=== PATIENT | male | born 1960 | race Caucasian/White ===

== ENCOUNTER → 2016-08-20 | Outpatient (CLI) | payer MEDICAID ==
[~2016-08-20] MED LIST: AMLO5TAB88 PO; BENA20TA3 PO; COLC0.6T66 PO; COR25 PO; FLEC100T2 PO; METOPROLOL; WARF10TA21 PO
[2016-08-20 08:04] LABS: HEMATOCRIT 41.7 % (42.0-52.0); HEMOGLOBIN 14.2 g/dL (14.0-18.0); MEAN CORPUSCULAR HEMOGLOBIN 29.8 pg (28.0-32.0); MEAN CORPUSCULAR VOLUME 87.3 fL (80.0-94.0); PLATELET 128 x1000/uL (130-400); RED BLOOD CELL COUNT 4.77 mill/uL (4.7-6.1); RED CELL DISTRIBUTION WIDTH 13.9 % (11.6-14.6)
[2016-08-20 08:10] LABS: INR 2.7; PARTIAL THROMBOPLASTIN TIME 41.3 sec (24.0-34.0); PROTHROMBIN TIME 28.8 sec
[2016-08-20 08:13] LABS: CARBON DIOXIDE 28 mEq/L (21-32); CHLORIDE 110 mEq/L (98-107)
== END | disposition home or self-care (01) ==
LOC: CCL 06:00 → CARD 06:10 → EDSTATUS 08:00
PROVIDERS: ATTEND Internal Medicine Clinical Cardiac Electrophysiology
DX: I48.4 Atypical atrial flutter (principal); I35.8 Other nonrheumatic aortic valve disorders; I10 Essential (primary) hypertension; I45.81 Long QT syndrome; Z79.01 Long term (current) use of anticoagulants
CPT/HCPCS: 36415; 80048; 85027; 85610; 85730; 93005

== ENCOUNTER 2016-08-21 06:14 | Day surgery (SDC) | payer MEDICAID ==
[~2016-08-21] VITALS: Ht 167.6 cm; Wt 72.6 kg
[2016-08-21] MEDS ORDERED: DIPHENHYDRAMINE 50MG/ML VIAL ONE (08:09)
[2016-08-21] MEDS ORDERED: MIDAZOLAM HCL 5 MG/5 ML VIAL ONE (08:09)
[2016-08-21] MEDS ORDERED: FENTANYL CITRATE/PF 50MCG/ML 2ML VIAL ONE (08:09)
[2016-08-21] MEDS ORDERED: PROPOFOL 200MG/20ML VIAL IV ONE (08:36)
[2016-08-21] MEDS ORDERED: LIDOCAINE HCL/PF 2% 20MG/ML 5 ML/VIAL ONE (08:37)
[2016-08-21] MEDS ORDERED: HYDROMORPHONE HCL/PF 2MG/ML CPJ IV PRN ×2 (08:45→12:15)
[2016-08-21] MEDS ORDERED: LABETALOL HCL 20MG/4ML CARPUJECT IV PRN ×2 (08:45→12:15)
[2016-08-21] MEDS ORDERED: ONDANSETRON HCL 4MG/2ML VIAL IV PRN ×2 (08:45→12:15)
[2016-08-21] MEDS ORDERED: MEPERIDINE HCL/PF 25MG/ML CPJ IV PRN ×2 (08:45→12:15)
== END 2016-08-21 12:15 | disposition home or self-care (01) ==
LOC: OR 06:14
PROVIDERS: ATTEND Internal Medicine Clinical Cardiac Electrophysiology
DX: I48.91 Unspecified atrial fibrillation (principal); I48.92 Unspecified atrial flutter; Z95.2 Presence of prosthetic heart valve; I10 Essential (primary) hypertension
CPT/HCPCS: 92960; 93005; J3490; J1200; J2250; J2704; J3010

== ENCOUNTER 2017-06-01 08:36 | Day surgery (SDC) | payer MEDICAID ==
[~2017-06-01] VITALS: Ht 180.3 cm; Wt 94.3 kg
[~2017-06-01 08:36] MED LIST changes: -METOPROLOL
[2017-06-01 10:14] LABS: BASOPHILS % 0.4 % (0.0-2.0); EOSINOPHILS % 1.9 % (0.0-5.0); HEMATOCRIT. 42.8 % (42.0-52.0); HEMOGLOBIN. 14.6 g/dL (14.0-18.0); LYMPHOCYTES % 18.5 % (20.0-50.0); MEAN CORPUSCULAR HEMOGLOBIN 30.3 pg (28.0-32.0); MEAN CORPUSCULAR VOLUME 88.7 fL (80.0-94.0); MEAN PLATELET VOLUME 9.1 fl (7.4-10.4); MONOCYTES % 10.9 % (2.0-8.0); NEUTROPHILS % 68.3 % (40.0-76.0); PLATELET 117 x1000/uL (130-400); RED BLOOD CELL COUNT 4.83 mill/uL (4.7-6.1); RED CELL DISTRIBUTION WIDTH 15.7 % (11.6-14.6)
[2017-06-01 10:16] LABS: CHLORIDE 110 mEq/L (98-107)
[2017-06-01 10:20] LABS: INR 3.4; PARTIAL THROMBOPLASTIN TIME 43.2 sec (23.4-31.0); PROTHROMBIN TIME 36.1 sec (9.4-11.6)
[2017-06-01] MEDS ORDERED: WARF-53 PO (10:30)
[2017-06-01] MEDS ORDERED: AMI2 PO (10:30)
[2017-06-01] MEDS ORDERED: PROPOFOL 200MG/20ML VIAL IV ONE (11:39)
[2017-06-01] MEDS ORDERED: ATROPINE SULFATE 0.1MG/ML 10ML DISP.SYRIN ONE (11:44)
[2017-06-01] MEDS ORDERED: SODIUM CHLORIDE 0.9% 1,000 ML IV SCH (13:45)
[2017-06-01] MEDS ORDERED: ONDANSETRON HCL 4MG/2ML VIAL IV PRN (13:45)
== END 2017-06-01 14:30 | disposition home or self-care (01) ==
LOC: CARD 08:36
PROVIDERS: ATTEND Internal Medicine Clinical Cardiac Electrophysiology
DX: I48.1 Persistent atrial fibrillation (principal); Z95.0 Presence of cardiac pacemaker
CPT/HCPCS: 36415; 80048; 85025; 85610; 85730; 92960; 93005; J0461; J2704

== ENCOUNTER 2018-04-27 12:23 | Day surgery (SDC) | payer MEDICAID ==
[~2018-04-27 12:23] MED LIST changes: +AMI2 PO; +BENA20TA10 PO; -BENA20TA3 PO; +WARF-53 PO
[2018-04-27 13:40] LABS: HEMATOCRIT. 37.7 % (42.0-52.0); HEMOGLOBIN. 12.7 g/dL (14.0-18.0); MEAN CORPUSCULAR HEMOGLOBIN 29.7 pg (28.0-32.0); MEAN CORPUSCULAR VOLUME 88.3 fL (80.0-94.0); MEAN PLATELET VOLUME 8.4 fl (7.4-10.4); PLATELET 126 x1000/uL (130-400); RED BLOOD CELL COUNT 4.26 mill/uL (4.7-6.1); RED CELL DISTRIBUTION WIDTH 13.6 % (11.6-14.6)
[2018-04-27 13:45] LABS: CHLORIDE 109 mEq/L (98-107)
[2018-04-27 13:49] LABS: INR 2.5; PARTIAL THROMBOPLASTIN TIME 45.6 sec (23.4-31.0); PROTHROMBIN TIME 25.1 sec (9.1-11.1)
[2018-04-27 14:08] LABS: ATYPICAL LYMPHOCYTES 1
[2018-04-27 14:09] LABS: PLATELET ESTIMATE SLIGHTLY DECREASED
[2018-04-27] MEDS ORDERED: FENTANYL CITRATE/PF 50MCG/ML 2ML VIAL ONE (15:13)
[2018-04-27] MEDS ORDERED: MIDAZOLAM HCL 5 MG/5 ML VIAL ONE (15:14)
[2018-04-27] MEDS ORDERED: ONDANSETRON HCL 4MG/2ML INJ IV PRN (15:45)
== END 2018-04-27 17:30 | disposition home or self-care (01) ==
LOC: CCL 12:23
PROVIDERS: ATTEND Internal Medicine Clinical Cardiac Electrophysiology
DX: I48.0 Paroxysmal atrial fibrillation (principal); Z95.1 Presence of aortocoronary bypass graft
CPT/HCPCS: 36415; 80048; 85025; 85610; 85730; 92960; 93005; J2250; J2704; J3010; J3490

== ENCOUNTER 2018-05-08 13:04 | Emergency (ER) | payer MEDICAID ==
[~2018-05-08] VITALS: Ht 180.3 cm; Wt 95.0 kg
[2018-05-08 14:43] LABS: BASOPHILS % 0.2 % (0.0-2.0); EOSINOPHILS % 1.1 % (0.0-5.0); HEMOGLOBIN. 12.5 g/dL (14.0-18.0); LYMPHOCYTES % 10.2 % (20.0-50.0); MEAN CORPUSCULAR HEMOGLOBIN 29.8 pg (28.0-32.0); MEAN CORPUSCULAR VOLUME 88.2 fL (80.0-94.0); MEAN PLATELET VOLUME 9.5 fl (7.4-10.4); MONOCYTES % 10.1 % (2.0-8.0); NEUTROPHILS % 78.4 % (40.0-76.0); PLATELET 150 x1000/uL (130-400); RED CELL DISTRIBUTION WIDTH 13.4 % (11.6-14.6)
[2018-05-08 14:47] LABS: CHLORIDE 110 mEq/L (98-107); INR 2.2; PROTHROMBIN TIME 21.4 sec (9.1-11.1)
[2018-05-08 17:00] VITALS: BP 123/64
== END 2018-05-08 17:00 | disposition left against medical advice (07) ==
LOC: ER 13:15 → CANBEDREQ 16:07 → ER 17:00
DX: R55 Syncope and collapse (principal); S00.31XA Abrasion of nose, initial encounter; I48.91 Unspecified atrial fibrillation; I11.9 Hypertensive heart disease without heart failure; Z79.01 Long term (current) use of anticoagulants; Z95.2 Presence of prosthetic heart valve; W01.0XXA Fall on same level from slipping, tripping and stumbling without subsequent striking against object, initial encounter; Y93.89 Activity, other specified; Y92.018 Other place in single-family (private) house as the place of occurrence of the external cause
CPT/HCPCS: 36415; 70486; 71045; 82962; 83605; 83880; 84484; 93005; 99284

== ENCOUNTER 2018-07-31 04:17 | Inpatient (IN) | payer MEDICAID ==
[~2018-07-31] VITALS: Ht 180.3 cm; Wt 91.3 kg
[2018-07-31] VITALS (58 sets, daily range): BP systolic 82–131; BP diastolic 46–85
[~2018-07-31 04:17] MED LIST changes: -AMI2 PO
[2018-07-31] MEDS ORDERED: SODIUM CHLORIDE 0.9% 1,000 ML IV ONE ×2 (04:53→06:29)
[2018-07-31] MEDS ORDERED: CALCIUM GLUCONATE 100MG/ML 10ML VIAL IV ONE (05:00)
[2018-07-31] MEDS ORDERED: GLUCAGON,HUMAN RECOMBINANT 1MG/VIAL IV ONE (05:00)
[2018-07-31] MEDS ORDERED: ATROPINE SULFATE 1MG/ML VIAL IV ONE (05:15)
[2018-07-31 05:21] LABS: CHLORIDE 106 mEq/L (98-107)
[2018-07-31 05:22] LABS: BASOPHILS % 0.4 % (0.0-2.0); EOSINOPHILS % 1.6 % (0.0-5.0); HEMATOCRIT. 43.3 % (42.0-52.0); HEMOGLOBIN. 14.4 g/dL (14.0-18.0); LYMPHOCYTES % 19.6 % (20.0-50.0); MEAN CORPUSCULAR VOLUME 87.4 fL (80.0-94.0); MONOCYTES % 9.4 % (2.0-8.0); PLATELET 124 x1000/uL (130-400); RED BLOOD CELL COUNT 4.95 mill/uL (4.7-6.1); RED CELL DISTRIBUTION WIDTH 16.9 % (11.6-14.6)
[2018-07-31] MEDS ORDERED: ATROPINE SULFATE 1MG/10ML SYR IV SCH (05:30)
[2018-07-31] MEDS ORDERED: ONDANSETRON HCL 4MG/2ML INJ IV ONE ×2 (05:30→07:15)
[2018-07-31 05:42] LABS: INR 1.1; PARTIAL THROMBOPLASTIN TIME 30.9 sec (23.4-31.0); PROTHROMBIN TIME 11.6 sec (9.6-11.0)
[2018-07-31] MEDS ORDERED: DOPAMINE 400MG/250ML PREMIX 250 ML IV ONE (06:30)
[2018-07-31] MEDS ORDERED: ACETAMINOPHEN 650MG SUPP PR PRN (08:30)
[2018-07-31] MEDS ORDERED: CLONIDINE 0.1MG TABLET PO PRN (08:30)
[2018-07-31] MEDS ORDERED: IPRATROPIUM/ALBUTEROL 0.5-3(2.5)MG/3ML NEB INH PRN (08:30)
[2018-07-31] MEDS ORDERED: HYDROCODONE/ACETAMINOPHEN 5/325MG TABLET PO PRN (08:30)
[2018-07-31] MEDS ORDERED: GUAIFENESIN 200MG/10ML SUGAR FREE UDC PO PRN (08:30)
[2018-07-31] MEDS ORDERED: HYDROCODONE/ACETAMINOPHEN 10/325MG TABLET PO PRN (08:30)
[2018-07-31] MEDS ORDERED: ACETAMINOPHEN 650MG/20.3ML UDC GT PRN (08:30)
[2018-07-31] MEDS ORDERED: DIPHENHYDRAMINE 50MG/ML VIAL IV PRN (08:30)
[2018-07-31] MEDS ORDERED: MAGNESIUM/ALUMINUM HYDROXIDE/SIMETHICONE 30ML UDC PO PRN (08:30)
[2018-07-31] MEDS ORDERED: DEXTROSE 50% WATER 50ML SYRINGE IV PRN (10:45)
[2018-07-31] MEDS ORDERED: NA PHOS,M-B/NA PHOS,DI-BA ENEMA 118ML PR PRN (11:00)
[2018-07-31] MEDS ORDERED: DOCUSATE SODIUM 100MG CAPSULE PO PRN (11:00)
[2018-07-31] MEDS ORDERED: ENOXAPARIN 40MG/0.4ML SYR SUBCUT SCH (12:00)
[2018-07-31 12:01] LABS: CLARITY URINE CLEAR (CLEAR); COLOR URINE YELLOW (YELLOW); KETONES URINE NEGATIVE (NEGATIVE); LEUKOCYTE ESTERASE URINE NEGATIVE (NEGATIVE); NITRITE URINE NEGATIVE (NEGATIVE); OCCULT BLOOD URINE NEGATIVE (NEGATIVE); PROTEIN URINE 1+ (NEGATIVE); SPECIFIC GRAVITY URINE 1.017 (1.005-1.030); UROBILINOGEN URINE 0.2 E.U./dL (0.2-1.0)
[2018-07-31 12:11] LABS: *AMPHETAMINES SCREEN URINE NEGATIVE (NEGATIVE)
[2018-07-31 12:12] LABS: *BARBITURATES SCREEN URINE NEGATIVE (NEGATIVE); *BENZODIAZEPINES SCREEN URINE NEGATIVE (NEGATIVE); *COCAINE SCREEN URINE NEGATIVE (NEGATIVE); CANNABINOID URINE SCREEN NEGATIVE (NEGATIVE); METHADONE URINE SCREEN NEGATIVE (NEGATIVE); OPIATES URINE SCREEN NEGATIVE (NEGATIVE); PHENCYCLIDINE URINE SCREEN NEGATIVE (NEGATIVE)
[2018-07-31] MEDS ORDERED: BLOOD SUGAR DIAGNOSTIC STRIP TEST SCH (12:50)
[2018-07-31] MEDS ORDERED: ONDANSETRON HCL 4MG/2ML INJ IV PRN (13:00)
[2018-07-31] MEDS ORDERED: INSULIN LISPRO 100 UNITS/ML SUBCUT SCH (13:20)
[2018-07-31] MEDS: SODIUM CHLORIDE 0.9% INJ 3ML FLUSH IVF SCH ×2 (13:23→21:39)
[2018-07-31] MEDS ORDERED: ENOXAPARIN 60MG/0.6ML SYR SUBCUT NR (14:45)
[2018-07-31 15:57] LABS: CREATINE KINASE 56 IU/L (39-308)
[2018-07-31 15:58] LABS: CREATINE KINASE MB FRACTION < 1.0 ng/mL (0.5-3.6)
[2018-07-31] MEDS: DOPAMINE 400MG/250ML PREMIX 250 ML IV PRN (16:40)
[2018-07-31] MEDS ORDERED: WARFARIN SODIUM 10MG TABLET PO NR (18:00)
[2018-07-31] MEDS: ENOXAPARIN 100MG/ML SYR SUBCUT SCH (21:39)
[2018-07-31 23:38] LABS: CREATINE KINASE 51 IU/L (39-308)
[2018-07-31 23:39] LABS: CREATINE KINASE MB FRACTION < 1.0 ng/mL (0.5-3.6)
[2018-08-01] VITALS (53 sets, daily range): BP systolic 91–131; BP diastolic 46–86
[2018-08-01] MEDS: DOPAMINE 400MG/250ML PREMIX 250 ML IV PRN ×2 (02:18→12:24)
[2018-08-01] MEDS: ACETAMINOPHEN 325MG TABLET PO PRN (02:53)
[2018-08-01] MEDS: SODIUM CHLORIDE 0.9% INJ 3ML FLUSH IVF SCH ×3 (05:36→21:09)
[2018-08-01 05:38] LABS: BASOPHILS % 0.3 % (0.0-2.0); EOSINOPHILS % 1.7 % (0.0-5.0); HEMATOCRIT. 41.5 % (42.0-52.0); HEMOGLOBIN. 14.1 g/dL (14.0-18.0); INR 1.4; LYMPHOCYTES % 15.4 % (20.0-50.0); MEAN CORPUSCULAR HEMOGLOBIN 29.5 pg (28.0-32.0); MEAN CORPUSCULAR VOLUME 86.7 fL (80.0-94.0); MEAN PLATELET VOLUME 8.7 fl (7.4-10.4); MONOCYTES % 10.9 % (2.0-8.0); NEUTROPHILS % 71.7 % (40.0-76.0); PLATELET 107 x1000/uL (130-400); PROTHROMBIN TIME 14.1 sec (9.6-11.0); RED BLOOD CELL COUNT 4.79 mill/uL (4.7-6.1); RED CELL DISTRIBUTION WIDTH 16.9 % (11.6-14.6)
[2018-08-01 06:12] LABS: CHLORIDE 109 mEq/L (98-107)
[2018-08-01 06:29] LABS: HDL CHOLESTEROL 38 mg/dL (40-59)
[2018-08-01 06:32] LABS: LDL CHOLESTEROL 93 mg/dL (5-100)
[2018-08-01] MEDS: ENOXAPARIN 100MG/ML SYR SUBCUT SCH ×2 (10:54→21:09)
[2018-08-01] MEDS ORDERED: ENOXAPARIN 40MG/0.4ML SYR SUBCUT SCH (21:00)
[2018-08-02] VITALS (58 sets, daily range): BP systolic 84–144; BP diastolic 43–89
[2018-08-02] MEDS: DOPAMINE 400MG/250ML PREMIX 250 ML IV PRN (04:11)
[2018-08-02] MEDS: SODIUM CHLORIDE 0.9% INJ 3ML FLUSH IVF SCH ×3 (06:00→22:33)
[2018-08-02 07:56] LABS: CHLORIDE 109 mEq/L (98-107)
[2018-08-02 08:05] LABS: BASOPHILS % 0.4 % (0.0-2.0); EOSINOPHILS % 2.2 % (0.0-5.0); HEMATOCRIT. 40.5 % (42.0-52.0); HEMOGLOBIN. 13.5 g/dL (14.0-18.0); LYMPHOCYTES % 21.6 % (20.0-50.0); MEAN CORPUSCULAR VOLUME 87.1 fL (80.0-94.0); MEAN PLATELET VOLUME 8.3 fl (7.4-10.4); MONOCYTES % 10.9 % (2.0-8.0); NEUTROPHILS % 64.9 % (40.0-76.0); PLATELET 99 x1000/uL (130-400); RED BLOOD CELL COUNT 4.66 mill/uL (4.7-6.1); RED CELL DISTRIBUTION WIDTH 16.9 % (11.6-14.6)
[2018-08-02] MEDS: ENOXAPARIN 100MG/ML SYR SUBCUT SCH (09:33)
[2018-08-02] MEDS ORDERED: WARFARIN SODIUM 7.5MG TABLET PO SCH (10:12)
[2018-08-02] MEDS: ACETAMINOPHEN 325MG TABLET PO PRN ×2 (12:28→18:33)
[2018-08-02 17:04] LABS: INR 1.3; PROTHROMBIN TIME 13.6 sec (9.6-11.0)
[2018-08-02] MEDS: FLECAINIDE 50MG TABLET PO SCH (17:28)
[2018-08-02] MEDS ORDERED: WARFARIN SODIUM 2.5MG TABLET PO NR (18:30)
[2018-08-02] MEDS ORDERED: NOREPINEPHRINE 32 MG in DEXT 5% WATER 468 ML IV PRN (19:00)
[2018-08-03] VITALS (34 sets, daily range): BP systolic 89–148; BP diastolic 58–95
[2018-08-03] MEDS ORDERED: FLECAINIDE 50MG TABLET PO SCH ×2 (01:00)
[2018-08-03 05:45] LABS: BASOPHILS % 0.4 % (0.0-2.0); EOSINOPHILS % 2.8 % (0.0-5.0); HEMATOCRIT. 43.5 % (42.0-52.0); HEMOGLOBIN. 14.5 g/dL (14.0-18.0); LYMPHOCYTES % 23.3 % (20.0-50.0); MEAN CORPUSCULAR HEMOGLOBIN 28.9 pg (28.0-32.0); MEAN CORPUSCULAR VOLUME 86.7 fL (80.0-94.0); MEAN PLATELET VOLUME 8.5 fl (7.4-10.4); MONOCYTES % 12.1 % (2.0-8.0); NEUTROPHILS % 61.4 % (40.0-76.0); PLATELET 111 x1000/uL (130-400); RED BLOOD CELL COUNT 5.01 mill/uL (4.7-6.1)
[2018-08-03 05:54] LABS: INR 1.4; PROTHROMBIN TIME 14.6 sec (9.6-11.0)
[2018-08-03 06:10] LABS: CHLORIDE 108 mEq/L (98-107)
[2018-08-03] MEDS: SODIUM CHLORIDE 0.9% INJ 3ML FLUSH IVF SCH ×3 (07:30→22:10)
[2018-08-03] MEDS ORDERED: GENTAMICIN/NS IRRIGATION 500 ML IR ONE (07:35)
[2018-08-03] MEDS ORDERED: LIDOCAINE HCL 1% 20ML VIAL (Pyxis) INJ ONE (07:35)
[2018-08-03] MEDS ORDERED: GENTAMICIN SULF 40MG/ML 2ML VIAL ONE (07:35)
[2018-08-03] MEDS ORDERED: IOHEXOL-300 100 ML BOTTLE ONE (07:36)
[2018-08-03] MEDS ORDERED: CEFAZOLIN 1000MG PREMIX 100 ML IV ONE (07:37)
[2018-08-03] MEDS ORDERED: FENTANYL CITRATE/PF 50MCG/ML 2ML VIAL ONE (08:54)
[2018-08-03] MEDS ORDERED: MIDAZOLAM HCL 2 MG/2 ML VIAL ONE ×3 (08:54→11:33)
[2018-08-03] MEDS: FLECAINIDE 50MG TABLET PO SCH ×2 (09:32→20:13)
[2018-08-03] MEDS ORDERED: DIPHENHYDRAMINE 50MG/ML VIAL ONE (10:53)
[2018-08-03] MEDS ORDERED: CEFAZOLIN 1000MG PREMIX 50 ML IV ONE (11:06)
[2018-08-03] MEDS ORDERED: FLUMAZENIL 0.1 MG/ML 5ML VIAL IV ONE (11:35)
[2018-08-03] MEDS: HYDROCODONE/ACETAMINOPHEN 5/325MG TABLET PO PRN ×3 (13:52→22:56)
[2018-08-03] MEDS ORDERED: WARFARIN SODIUM 10MG TABLET PO NR (18:00)
[2018-08-03] MEDS: CEFAZOLIN 1000MG PREMIX 50 ML IV SCH (18:54)
[2018-08-03] MEDS: MAGNESIUM CITRATE 300ML SOLUTION PO SCH ×2 (21:19→22:00)
[2018-08-03] MEDS: CARVEDILOL 6.25 MG TABLET PO SCH (22:55)
[2018-08-04] VITALS (25 sets, daily range): BP systolic 102–134; BP diastolic 54–90
[2018-08-04] MEDS: MAGNESIUM CITRATE 300ML SOLUTION PO SCH (01:43)
[2018-08-04] MEDS: CEFAZOLIN 1000MG PREMIX 50 ML IV SCH (02:06)
[2018-08-04 06:01] LABS: CHLORIDE 108 mEq/L (98-107)
[2018-08-04 06:04] LABS: BASOPHILS % 0.2 % (0.0-2.0); EOSINOPHILS % 1.9 % (0.0-5.0); HEMATOCRIT. 42.2 % (42.0-52.0); HEMOGLOBIN. 14.4 g/dL (14.0-18.0); LYMPHOCYTES % 17.1 % (20.0-50.0); MEAN CORPUSCULAR HEMOGLOBIN 29.5 pg (28.0-32.0); MEAN CORPUSCULAR VOLUME 86.7 fL (80.0-94.0); MEAN PLATELET VOLUME 8.7 fl (7.4-10.4); MONOCYTES % 12.1 % (2.0-8.0); NEUTROPHILS % 68.7 % (40.0-76.0); PLATELET 124 x1000/uL (130-400); RED BLOOD CELL COUNT 4.86 mill/uL (4.7-6.1); RED CELL DISTRIBUTION WIDTH 16.4 % (11.6-14.6)
[2018-08-04 06:06] LABS: INR 1.4; PROTHROMBIN TIME 14.4 sec (9.6-11.0)
[2018-08-04] MEDS: ACETAMINOPHEN 325MG TABLET PO PRN ×2 (06:39→11:37)
[2018-08-04] MEDS: SODIUM CHLORIDE 0.9% INJ 3ML FLUSH IVF SCH (06:46)
[2018-08-04] MEDS: CARVEDILOL 6.25 MG TABLET PO SCH (08:37)
[2018-08-04] MEDS: FLECAINIDE 50MG TABLET PO SCH (08:37)
[2018-08-04] MEDS ORDERED: WARFARIN SODIUM 7.5MG TABLET PO SCH (18:00)
== END 2018-08-04 14:30 | disposition home or self-care (01) | DRG 171 ==
LOC: ER 04:17 → CVICU 07:15 → ENRESERV 08:28
PROVIDERS: ADMIT Family Medicine; ATTEND Family Medicine
PROC: 0JH606Z Insertion of Pacemaker, Dual Chamber into Chest Subcutaneous Tissue and Fascia, Open Approach (ICD-10-PCS; principal; 2018-08-03)
PROC: 02H63JZ Insertion of Pacemaker Lead into Right Atrium, Percutaneous Approach (ICD-10-PCS; 2018-08-03)
PROC: 02HK3JZ Insertion of Pacemaker Lead into Right Ventricle, Percutaneous Approach (ICD-10-PCS; 2018-08-03)
PROC: B5171ZZ Fluoroscopy of Left Subclavian Vein using Low Osmolar Contrast (ICD-10-PCS; 2018-08-03)
PROC: B5161ZZ Fluoroscopy of Right Subclavian Vein using Low Osmolar Contrast (ICD-10-PCS; 2018-08-03)
DX: I49.5 Sick sinus syndrome (principal); I48.91 Unspecified atrial fibrillation; E86.0 Dehydration; I10 Essential (primary) hypertension; I25.10 Atherosclerotic heart disease of native coronary artery without angina pectoris; Z95.2 Presence of prosthetic heart valve; Z79.01 Long term (current) use of anticoagulants; Z91.14 Patient's other noncompliance with medication regimen; Z79.899 Other long term (current) drug therapy
CPT/HCPCS: 33208; 36415; 71045; 75822; 80048; 80061; 80305; 82550; 82553; 82962; 83735; 83880; 84484; 92960; 93005; 93306; 93970; 96365; 96375; 99291; C1785; C1892; C1893; C1898; J0461; J0610; J0690; J1200; J1265; J1580; J1610; J1650; J2250; J2405; J3010; J3490; J7030; J7050; Q9967

== ENCOUNTER 2018-09-21 06:25 | Day surgery (SDC) | payer MEDICAID ==
[~2018-09-21] VITALS: Ht 181.6 cm; Wt 94.3 kg
[~2018-09-21 06:25] MED LIST changes: -AMLO5TAB88 PO; -BENA20TA10 PO; -COLC0.6T66 PO
[2018-09-21] MEDS ORDERED: PROPOFOL 200MG/20ML VIAL IV ONE (08:10)
[2018-09-21] MEDS ORDERED: LIDOCAINE HCL/PF 1% 10 MG/ML 5ML VIAL ONE (08:10)
[2018-09-21 08:39] LABS: BASOPHILS % 0.5 % (0.0-2.0); EOSINOPHILS % 1.6 % (0.0-5.0); HEMATOCRIT. 39.5 % (42.0-52.0); HEMOGLOBIN. 13.2 g/dL (14.0-18.0); LYMPHOCYTES % 17.4 % (20.0-50.0); MEAN CORPUSCULAR HEMOGLOBIN 29.9 pg (28.0-32.0); MEAN CORPUSCULAR VOLUME 89.3 fL (80.0-94.0); MEAN PLATELET VOLUME 8.4 fl (7.4-10.4); MONOCYTES % 10.6 % (2.0-8.0); NEUTROPHILS % 69.9 % (40.0-76.0); PLATELET 108 x1000/uL (130-400); RED BLOOD CELL COUNT 4.42 mill/uL (4.7-6.1); RED CELL DISTRIBUTION WIDTH 16.3 % (11.6-14.6)
[2018-09-21 08:45] LABS: CHLORIDE 110 mEq/L (98-107)
[2018-09-21 08:48] LABS: INR 2.7; PARTIAL THROMBOPLASTIN TIME 44.3 sec (23.4-31.0); PROTHROMBIN TIME 26.1 sec (9.6-11.0)
[2018-09-21] MEDS ORDERED: ACETAMINOPHEN 325MG TABLET PO PRN (10:15)
[2018-09-21] MEDS ORDERED: ONDANSETRON HCL 4MG/2ML INJ IV PRN (10:30)
== END 2018-09-21 11:45 | disposition home or self-care (01) ==
LOC: CARD 06:25
PROVIDERS: ATTEND Internal Medicine Clinical Cardiac Electrophysiology
DX: I48.0 Paroxysmal atrial fibrillation (principal); I49.5 Sick sinus syndrome; E11.9 Type 2 diabetes mellitus without complications; I11.0 Hypertensive heart disease with heart failure; I50.9 Heart failure, unspecified; J45.909 Unspecified asthma, uncomplicated; Z79.01 Long term (current) use of anticoagulants; Z79.899 Other long term (current) drug therapy; Z80.1 Family history of malignant neoplasm of trachea, bronchus and lung; Z82.3 Family history of stroke; Z95.0 Presence of cardiac pacemaker
CPT/HCPCS: 36415; 80048; 85025; 85610; 85730; 92960; 93005; J2704; J3490

== ENCOUNTER 2018-10-04 07:12 | Inpatient (IN) | payer MEDICAID ==
[~2018-10-04] VITALS: Ht 180.3 cm; Wt 99.4 kg
[2018-10-04] MEDS ORDERED: HEPARIN 1,000 UNITS PREMIX 1,500 ML IV ONE (07:49)
[2018-10-04] MEDS ORDERED: LIDOCAINE HCL 1% 20ML VIAL (Pyxis) INJ ONE (07:49)
[2018-10-04] MEDS ORDERED: HEPARIN SODIUM 1,000 UNIT/1ML VIAL IV ONE ×2 (08:00→16:05)
[2018-10-04 08:04] LABS: HEMATOCRIT 43.4 % (42.0-52.0); HEMOGLOBIN 14.5 g/dL (14.0-18.0); MEAN CORPUSCULAR HEMOGLOBIN 30.1 pg (28.0-32.0); MEAN CORPUSCULAR VOLUME 89.9 fL (80.0-94.0); PLATELET 112 x1000/uL (130-400); RED BLOOD CELL COUNT 4.83 mill/uL (4.7-6.1); RED CELL DISTRIBUTION WIDTH 15.5 % (11.6-14.6)
[2018-10-04 08:11] LABS: CHLORIDE 108 mEq/L (98-107)
[2018-10-04 08:14] LABS: INR 2.6; PARTIAL THROMBOPLASTIN TIME 42.7 sec (23.4-31.0); PROTHROMBIN TIME 25.4 sec (9.6-11.0)
[2018-10-04] MEDS ORDERED: PROPOFOL 200MG/20ML VIAL IV ONE (08:14)
[2018-10-04] MEDS ORDERED: FENTANYL CITRATE/PF 50MCG/ML 2ML VIAL ONE ×4 (08:14→20:24)
[2018-10-04] MEDS ORDERED: ROCURONIUM BROMIDE 10MG/ML VIAL 5ML IV ONE ×3 (08:14→15:31)
[2018-10-04] MEDS ORDERED: MIDAZOLAM HCL 2 MG/2 ML VIAL ONE (08:15)
[2018-10-04] MEDS ORDERED: AMLO5TAB88 MT (08:17)
[2018-10-04] MEDS ORDERED: WARF7.5T48 MT (08:17)
[2018-10-04] MEDS ORDERED: NEOSTIGMINE METHYLSULFATE 1MG/ML 10 ML VIAL ONE (13:11)
[2018-10-04] MEDS ORDERED: GLYCOPYRROLATE 0.2 MG/ML 2ML VIAL ONE ×2 (13:11→13:19)
[2018-10-04] MEDS ORDERED: PHENYLEPHRINE HCL 10 MG/ML 1ML (IV VIAL) IV ONE (15:59)
[2018-10-04] MEDS ORDERED: VECURONIUM BROMIDE 10 MG/VIAL IV ONE (17:26)
[2018-10-04] MEDS ORDERED: HEPARIN 1000 UNITS/ML 10ML ONE (17:48)
[2018-10-04] MEDS ORDERED: ATROPINE SULFATE 1MG/10ML SYR IV PRN (21:30)
[2018-10-04] MEDS ORDERED: SODIUM CHLORIDE 0.9% 1,000 ML IV ONE (21:39)
[2018-10-04] MEDS ORDERED: MORPHINE SULFATE 2 MG/ML CPJ (NOT FOR IM USE) IV PRN (21:45)
[2018-10-04] MEDS ORDERED: HYDROMORPHONE HCL/PF 2MG/ML CPJ IV PRN (21:45)
[2018-10-04] MEDS ORDERED: MEPERIDINE HCL/PF 25MG/ML CPJ IV PRN (21:45)
[2018-10-04] MEDS ORDERED: ONDANSETRON HCL 4MG/2ML INJ IV PRN (21:45)
[2018-10-04 23:28] VITALS: BP 130/88
[2018-10-05] VITALS (18 sets, daily range): BP systolic 105–166; BP diastolic 66–99
[2018-10-05] MEDS ORDERED: HYDROCODONE/ACETAMINOPHEN 5/325MG TABLET PO PRN (00:30)
[2018-10-05 05:42] LABS: CHLORIDE 113 mEq/L (98-107)
[2018-10-05 06:08] LABS: BASOPHILS % 0.1 % (0.0-2.0); HEMATOCRIT. 38.3 % (42.0-52.0); HEMOGLOBIN. 12.9 g/dL (14.0-18.0); LYMPHOCYTES % 9.3 % (20.0-50.0); MEAN CORPUSCULAR HEMOGLOBIN 30.4 pg (28.0-32.0); MEAN CORPUSCULAR VOLUME 90.7 fL (80.0-94.0); MONOCYTES % 4.9 % (2.0-8.0); NEUTROPHILS % 85.7 % (40.0-76.0); PLATELET 97 x1000/uL (130-400); RED BLOOD CELL COUNT 4.22 mill/uL (4.7-6.1); RED CELL DISTRIBUTION WIDTH 15.7 % (11.6-14.6)
[2018-10-05] MEDS: CARVEDILOL 6.25 MG TABLET PO SCH ×2 (08:52→20:35)
[2018-10-05] MEDS ORDERED: WARFARIN SODIUM 7.5MG TABLET PO SCH (09:00)
[2018-10-05] MEDS: AMLODIPINE 5MG TABLET PO SCH (09:00)
[2018-10-05] MEDS: FLECAINIDE 50MG TABLET PO SCH ×2 (12:22→20:36)
[2018-10-05] MEDS ORDERED: WARFARIN SODIUM 7.5MG TABLET PO ONE (12:30)
[2018-10-05] MEDS: WARFARIN SODIUM 7.5MG TABLET PO SCH (17:34)
[2018-10-05] MEDS: ACETAMINOPHEN 325MG TABLET PO PRN (20:34)
[2018-10-06] VITALS (12 sets, daily range): BP systolic 103–133; BP diastolic 65–98
[2018-10-06] MEDS ORDERED: FUROSEMIDE 40MG/4ML VIAL IVP SCH (03:00)
[2018-10-06] MEDS: ACETAMINOPHEN 325MG TABLET PO PRN ×3 (05:08→21:20)
[2018-10-06 05:37] LABS: INR 2.9
[2018-10-06] MEDS: CARVEDILOL 6.25 MG TABLET PO SCH ×2 (08:21→21:11)
[2018-10-06] MEDS: AMLODIPINE 5MG TABLET PO SCH (08:22)
[2018-10-06] MEDS: FLECAINIDE 50MG TABLET PO SCH ×2 (08:22→21:13)
[2018-10-06] MEDS ORDERED: WARFARIN SODIUM 10MG TABLET PO SCH (09:00)
[2018-10-06 12:16] LABS: CHLORIDE 108 mEq/L (98-107)
[2018-10-06] MEDS: WARFARIN SODIUM 7.5MG TABLET PO SCH (18:11)
[2018-10-07] VITALS (13 sets, daily range): BP systolic 126–143; BP diastolic 77–100
[2018-10-07 06:51] LABS: INR 2.3; PROTHROMBIN TIME 22.5 sec (9.6-11.0)
[2018-10-07] MEDS: CARVEDILOL 6.25 MG TABLET PO SCH ×2 (08:42→20:41)
[2018-10-07] MEDS: AMLODIPINE 5MG TABLET PO SCH (08:42)
[2018-10-07] MEDS: FLECAINIDE 50MG TABLET PO SCH ×2 (08:42→20:41)
[2018-10-07 10:59] LABS: CHLORIDE 108 mEq/L (98-107)
[2018-10-07] MEDS: ACETAMINOPHEN 325MG TABLET PO PRN (14:39)
[2018-10-07] MEDS: WARFARIN SODIUM 7.5MG TABLET PO SCH (17:40)
== END 2018-10-07 21:08 | disposition home health service (06) | DRG 175 ==
LOC: CCL 07:12 → 3WST 07:13
PROVIDERS: ADMIT Internal Medicine Clinical Cardiac Electrophysiology; ATTEND Internal Medicine Clinical Cardiac Electrophysiology
PROC: 02563ZZ Destruction of Right Atrium, Percutaneous Approach (ICD-10-PCS; principal; 2018-10-04)
PROC: 02573ZZ Destruction of Left Atrium, Percutaneous Approach (ICD-10-PCS; 2018-10-04)
PROC: 4A023N8 Measurement of Cardiac Sampling and Pressure, Bilateral, Percutaneous Approach (ICD-10-PCS; 2018-10-04)
DX: I11.0 Hypertensive heart disease with heart failure (principal); I48.1 Persistent atrial fibrillation; I49.5 Sick sinus syndrome; I50.23 Acute on chronic systolic (congestive) heart failure; J45.909 Unspecified asthma, uncomplicated; E87.6 Hypokalemia; I35.9 Nonrheumatic aortic valve disorder, unspecified; I48.92 Unspecified atrial flutter; Z79.01 Long term (current) use of anticoagulants; Z79.899 Other long term (current) drug therapy; Z95.2 Presence of prosthetic heart valve; Z95.0 Presence of cardiac pacemaker
CPT/HCPCS: 36415; 80048; 83735; 85027; 85347; 86850; 86900; 92960; 93005; 93613; 93622; 93655; 93656; 93657; 93662; 97161; C1730; C1731; C1732; C1759; C1893; C1894; J0461; J1644; J1940; J2250; J2370; J2704; J2710; J3010; J3490; A4315

== ENCOUNTER → 2018-11-01 | Day surgery (SDC) | payer MEDICAID ==
[~2018-11-01] VITALS: Ht 180.3 cm; Wt 95.3 kg
[~2018-11-01] MED LIST changes: +AMLO5TAB88 MT; +WARF7.5T48 MT
[2018-11-01 10:18] LABS: BASOPHILS % 0.3 % (0.0-2.0); EOSINOPHILS % 1.9 % (0.0-5.0); HEMOGLOBIN. 13.5 g/dL (14.0-18.0); LYMPHOCYTES % 16.5 % (20.0-50.0); MEAN CORPUSCULAR HEMOGLOBIN 30.3 pg (28.0-32.0); MEAN CORPUSCULAR VOLUME 89.8 fL (80.0-94.0); MEAN PLATELET VOLUME 8.9 fl (7.4-10.4); MONOCYTES % 10.7 % (2.0-8.0); NEUTROPHILS % 70.6 % (40.0-76.0); PLATELET 107 x1000/uL (130-400); RED BLOOD CELL COUNT 4.46 mill/uL (4.7-6.1); RED CELL DISTRIBUTION WIDTH 14.9 % (11.6-14.6)
[2018-11-01 10:22] LABS: CHLORIDE 111 mEq/L (98-107)
[2018-11-01 10:32] LABS: PARTIAL THROMBOPLASTIN TIME 54.3 sec (23.4-31.0); PROTHROMBIN TIME 48.8 sec (9.6-11.0)
[2018-11-01 11:06] LABS: INR 5.1
== END | disposition home or self-care (01) ==
LOC: CARD 08:03
PROVIDERS: ATTEND Internal Medicine Clinical Cardiac Electrophysiology
DX: I48.1 Persistent atrial fibrillation (principal); Z53.8 Procedure and treatment not carried out for other reasons; Z79.899 Other long term (current) drug therapy; Z80.1 Family history of malignant neoplasm of trachea, bronchus and lung; Z82.49 Family history of ischemic heart disease and other diseases of the circulatory system
CPT/HCPCS: 36415; 80048; 93005

== ENCOUNTER 2018-11-02 22:01 | Emergency (ER) | payer MEDICAID ==
[~2018-11-02] VITALS: Ht 180.3 cm; Wt 97.0 kg
[~2018-11-02 22:01] MED LIST changes: -AMLO5TAB88 MT; -COR25 PO; -WARF-53 PO; -WARF10TA21 PO
[2018-11-02 22:57] LABS: BASOPHILS % 0.8 % (0.0-2.0); EOSINOPHILS % 2.4 % (0.0-5.0); HEMATOCRIT. 39.7 % (42.0-52.0); HEMOGLOBIN. 13.6 g/dL (14.0-18.0); MEAN CORPUSCULAR HEMOGLOBIN 30.2 pg (28.0-32.0); MEAN CORPUSCULAR VOLUME 88.5 fL (80.0-94.0); MEAN PLATELET VOLUME 9.1 fl (7.4-10.4); MONOCYTES % 7.9 % (2.0-8.0); NEUTROPHILS % 71.9 % (40.0-76.0); PLATELET 121 x1000/uL (130-400); RED BLOOD CELL COUNT 4.49 mill/uL (4.7-6.1); RED CELL DISTRIBUTION WIDTH 14.8 % (11.6-14.6)
[2018-11-02 22:58] LABS: CHLORIDE 109 mEq/L (98-107)
[2018-11-03 00:51] VITALS: BP 129/80
== END 2018-11-03 00:51 | disposition home or self-care (01) ==
LOC: ER 22:01
DX: T50.995A Adverse effect of other drugs, medicaments and biological substances, initial encounter (principal); I10 Essential (primary) hypertension; I48.91 Unspecified atrial fibrillation; Z88.8 Allergy status to other drugs, medicaments and biological substances; Z95.0 Presence of cardiac pacemaker; Z95.2 Presence of prosthetic heart valve; Z79.01 Long term (current) use of anticoagulants; Y92.018 Other place in single-family (private) house as the place of occurrence of the external cause
CPT/HCPCS: 36415; 71045; 83880; 84484; 93005; 99284

== ENCOUNTER 2018-11-18 06:37 | Day surgery (SDC) | payer MEDICAID ==
[2018-11-18 08:45] LABS: BASOPHILS % 0.5 % (0.0-2.0); EOSINOPHILS % 1.8 % (0.0-5.0); HEMOGLOBIN. 13.5 g/dL (14.0-18.0); LYMPHOCYTES % 20.4 % (20.0-50.0); MEAN CORPUSCULAR HEMOGLOBIN 30.5 pg (28.0-32.0); MEAN CORPUSCULAR VOLUME 90.4 fL (80.0-94.0); MEAN PLATELET VOLUME 8.9 fl (7.4-10.4); MONOCYTES % 10.2 % (2.0-8.0); NEUTROPHILS % 67.1 % (40.0-76.0); PLATELET 101 x1000/uL (130-400); RED BLOOD CELL COUNT 4.42 mill/uL (4.7-6.1); RED CELL DISTRIBUTION WIDTH 14.9 % (11.6-14.6)
[2018-11-18 08:51] LABS: CHLORIDE 113 mEq/L (98-107)
[2018-11-18 08:53] LABS: INR 2.6; PROTHROMBIN TIME 25.9 sec (9.6-11.0)
[2018-11-18] MEDS ORDERED: PROPOFOL 200MG/20ML VIAL IV ONE (09:21)
[2018-11-18] MEDS ORDERED: LIDOCAINE HCL/PF 1% 10 MG/ML 5ML VIAL ONE (09:21)
== END 2018-11-18 12:05 | disposition home or self-care (01) ==
LOC: CARD 06:37
PROVIDERS: ATTEND Internal Medicine Clinical Cardiac Electrophysiology
DX: I48.1 Persistent atrial fibrillation (principal); I49.5 Sick sinus syndrome; I10 Essential (primary) hypertension; J45.909 Unspecified asthma, uncomplicated; Z79.899 Other long term (current) drug therapy; Z79.01 Long term (current) use of anticoagulants; Z72.89 Other problems related to lifestyle; Z95.0 Presence of cardiac pacemaker; Z88.8 Allergy status to other drugs, medicaments and biological substances; Z80.1 Family history of malignant neoplasm of trachea, bronchus and lung
CPT/HCPCS: 36415; 80048; 85025; 85610; 92960; 93005; J2704; J3490